=== PATIENT | male | born 2000 | race African-American/Black ===

== ENCOUNTER 2022-01-02 00:34 | Emergency (ER) | payer OTHER ==
[~2022-01-02] VITALS: Ht 182.9 cm; Wt 72.8 kg
[2022-01-02] MEDS ORDERED: IBUPROFEN 400 MG TABLET. PO ONE (01:15)
[2022-01-02] MEDS ORDERED: ACETAMINOPHEN 500 MG TABLET PO ONE (01:15)
--- NOTE | 2022-01-02 01:20 | PHYS DOC ---
Adult General Chief Complaint Chief Complaint: WRIST PAIN HPI HPI The patient is a 21-year-old male who presents for evaluation of right wrist discomfort after a session using a punching bag at home prior to arrival. Discomfort gradually worsened over half an hour or so after the session with the punching bag. No other injury during the episode. No therapy prior to arrival. Review of Systems Review of Systems A 12 point review of systems was completed and was negative except where noted in HPI above. Current Medications Current Medications Current Medications Medications (Trade) Dose Ordered Sig/Juan Start Time Stop Time Status Last Admin Dose Admin Acetaminophen (Tylenol) 1,000 mg 1X ONCE 01/02/22 01:15 01/02/22 01:16 DC 01/02/22 01:37 1,000 MG Ibuprofen (Motrin) 800 mg 1X ONCE 01/02/22 01:15 01/02/22 01:16 DC 01/02/22 01:37 800 MG Allergies Allergies Allergies Coded Allergies Type Severity Reaction Last Updated Verified No Known Drug Allergies 01/02/22 No Physical Exam Physical Exam 21-year-old male appearing nontoxic and in no acute distress. Head is normocephalic and atraumatic. Neck is supple and nontender. Oropharynx is moist. Lungs are clear to auscultation at all stations. There is a normal S1 and S2 without rubs or gallops and capillary refill is appropriate, less than 2 seconds globally. Abdomen is soft, nontender and nondistended. Skin is warm and dry without cyanosis, clubbing or edema. Psychiatrically, the patient demonstrates appropriate mood and affect and is alert. Evaluation of the right arm is remarkable for mild tenderness and swelling over the right wrist, volar and dorsal aspects. No significant limitation in range of the right wrist. No discomfort with ranging of any other joint of the right upper extremity. Right upper extremity is neurovascularly intact distally strength 5/5, sensation intact light touch in all nerve distributions, radial pulse 2+, capillary refill less than 2 seconds, hand warm and well-perfused. Current Patient Data Vital Signs Vital Signs Date Time Temp Pulse Resp B/P (MAP) Pulse Ox O2 Delivery O2 Flow Rate FiO2 01/02/22 00:40 98.1 99 20 118/72 (87) 94 Room Air 98.1 EKG EKG [] Radiology/Procedures Radiology/Procedures EXAM: 3 views right wrist 3 views right hand DATE: 01/02/2022 1:09 AM INDICATION: Reason: pain, injury / Spl. Instructions: / History: . COMPARISON: No Prior FINDINGS/ IMPRESSION: Soft tissue swelling about the right long finger centered at the PIP joint. No acute fracture or dislocation. Electronically signed by: Antonio Bethea MD (01/02/2022 1:37 AM) [facility] DICTATED and SIGNED BY: ANTONIO BETHEA MD DATE: 01/02/22 0136 Course & Med Decision Making Course & Med Decision Making We will give ibuprofen and Tylenol and check plain films as noted and will then reevaluate. 0200: Work-up without evidence of fracture. Will place cock-up splint for comfort and discharged with a course of ibuprofen to follow-up closely with primary care. Patient understands and agrees. He understands that if he feels worse instead of better or develops other new symptoms of concern he should return to the emergency department immediately for reevaluation. All questions are answered. Dragon Disclaimer Dragon Disclaimer This electronic medical record was generated, in whole or in part, using a voice recognition dictation system. Departure Departure Impression: Primary Impression: Acute pain of right wrist Disposition: 01 HOME / SELF CARE / HOMELESS Condition: IMPROVED Patient Instructions: Musculoskeletal Pain Additional Instructions: Follow-up very closely with your primary care doctor in the office in the next 2 to 4 days for reevaluation of your symptoms and a discussion of next best steps in care. Take 600 mg of ibuprofen (three 200mg pills) every 6 hours as needed for discomfort. Take with food to prevent stomach upset. Rest, ice and elevate. Wear the Velcro splint for comfort and support. Return to the emergency department right away for worsening symptoms of any kind with any other new symptoms of concern SHAKIRA FERRARO MD Jan 02, 2022 01:20
--- NOTE | 2022-01-02 01:40 | RAD ---
EXAM: 3 views right wrist 3 views right hand DATE: 01/02/2022 1:09 AM INDICATION: Reason: pain, injury / Spl. Instructions: / History: . COMPARISON: No Prior FINDINGS/ IMPRESSION: Soft tissue swelling about the right long finger centered at the PIP joint. No acute fracture or disl ocation. Electronically signed by: Antonio Bethea MD (01/02/2022 1:37 AM) [facility]
[2022-01-02 02:22] VITALS: BP 106/63
== END 2022-01-02 02:40 | disposition home or self-care (01) ==
LOC: ER 00:34
DX: M25.531 Pain in right wrist (principal); R22.31 Localized swelling, mass and lump, right upper limb
CPT/HCPCS: 29125; 73110; 73130; 99284